=== PATIENT | female | born 1975 | race African-American/Black ===

== ENCOUNTER 2016-08-06 01:30 | Emergency (ER) | payer OTHER, MEDICAID ==
[~2016-08-06] VITALS: Ht 172.7 cm; Wt 96.0 kg
[2016-08-06] MEDS ORDERED: CYCLOBENZAPRINE 10MG TABLET PO ONE (02:15)
[2016-08-06] MEDS ORDERED: KETOROLAC 60MG/2ML VIAL IM ONE (02:15)
[2016-08-06 04:14] VITALS: BP 126/82
[2016-08-06] MEDS ORDERED: METF500T4 PO (22:49)
== END 2016-08-06 04:21 | disposition home or self-care (01) ==
LOC: ER 01:30
DX: M54.12 Radiculopathy, cervical region (principal); I10 Essential (primary) hypertension; E11.9 Type 2 diabetes mellitus without complications; H53.8 Other visual disturbances; Z88.0 Allergy status to penicillin
CPT/HCPCS: 73030; 82962; 96372; 99284; J1885

== ENCOUNTER 2016-08-06 16:03 | Observation (INO) | payer OTHER, MEDICAID ==
[~2016-08-06] VITALS: Ht 162.6 cm; Wt 89.8 kg
[2016-08-06] MEDS ORDERED: ONDANSETRON HCL 4MG/2ML VIAL IV STA (16:29)
[2016-08-06] MEDS ORDERED: MORPHINE SULFATE 4 MG/ML CPJ (NOT FOR IM USE) IV STA (16:29)
[2016-08-06] MEDS ORDERED: VANCOMYCIN 1 G PREMIX 200 ML IV ONE (16:30)
[2016-08-06] MEDS ORDERED: SODIUM CHLORIDE 0.9% 1000ML BAG (SEPSIS BOLUS) IV ONE (16:30)
[2016-08-06] MEDS ORDERED: LEVOFLOXACIN 750MG PREMIX 150 ML IV ONE (16:30)
[2016-08-06] MEDS ORDERED: ACETAMINOPHEN 325MG TABLET PO ONE (16:45)
[2016-08-06 16:54] LABS: BASOPHILS % 0.4 % (0.0-2.0); CHLORIDE 102 mEq/L (98-107); EOSINOPHILS % 0.1 % (0.0-5.0); HEMATOCRIT. 39.1 % (36.0-48.0); HEMOGLOBIN. 13.1 g/dL (12.0-16.0); LYMPHOCYTES % 10.4 % (20.0-50.0); MEAN CORPUSCULAR HEMOGLOBIN 29.8 pg (28.0-32.0); MEAN CORPUSCULAR VOLUME 88.8 fL (81.0-99.0); MEAN PLATELET VOLUME 8.8 fl (7.4-10.4); MONOCYTES % 4.9 % (2.0-8.0); NEUTROPHILS % 84.2 % (40.0-76.0); PLATELET 197 x1000/uL (130-400); RED CELL DISTRIBUTION WIDTH 13.4 % (11.6-14.6)
[2016-08-06 16:58] LABS: CARBON DIOXIDE 25 mEq/L (21-32); PROTHROMBIN TIME 10.1 sec
[2016-08-06 17:04] LABS: CLARITY URINE CLOUDY (CLEAR); COLOR URINE YELLOW (YELLOW); GLUCOSE URINE 3+ (NEGATIVE); KETONES URINE TRACE (NEGATIVE); LEUKOCYTE ESTERASE URINE TRACE (NEGATIVE); NITRITE URINE NEGATIVE (NEGATIVE); OCCULT BLOOD URINE 3+ (NEGATIVE); PROTEIN URINE NEGATIVE (NEGATIVE); SPECIFIC GRAVITY URINE 1.039 (1.005-1.030); UROBILINOGEN URINE 0.2 E.U./dL (0.2-1.0)
[2016-08-06 17:07] LABS: HCG SCREEN NEGATIVE
[2016-08-06] MEDS ORDERED: INSULIN LISPRO(HUMALOG)300 UNIT/3ML VIAL SUBCUT NR (20:30)
[2016-08-06 21:00] VITALS: BP 130/84
[2016-08-06 22:00] VITALS: BP 130/84
[2016-08-06] MEDS ORDERED: TEMAZEPAM 15MG CAPSULE PO PRN (22:45)
[2016-08-06] MEDS ORDERED: DEXTROSE 50% WATER 50ML SYRINGE IV PRN (22:45)
[2016-08-06] MEDS ORDERED: METF500T4 PO (22:49)
[2016-08-06] MEDS ORDERED: HYDROCODONE/ACETAMINOPHEN 5/325MG TABLET PO PRN (22:59)
[2016-08-07] VITALS: BP 118/66
[2016-08-07] MEDS ORDERED: ACETAMINOPHEN 325MG TABLET PO PRN (01:00)
[2016-08-07] MEDS ORDERED: VANCOMYCIN 1250MG in DEXTROSE 5% WATER 250ML IV NR (02:00)
[2016-08-07 04:00] VITALS: BP 108/58
[2016-08-07 06:23] LABS: BASOPHILS % 0.3 % (0.0-2.0); EOSINOPHILS % 0.4 % (0.0-5.0); HEMATOCRIT. 37.3 % (36.0-48.0); HEMOGLOBIN. 12.5 g/dL (12.0-16.0); MEAN CORPUSCULAR VOLUME 89.5 fL (81.0-99.0); MEAN PLATELET VOLUME 8.9 fl (7.4-10.4); MONOCYTES % 6.1 % (2.0-8.0); NEUTROPHILS % 67.2 % (40.0-76.0); PLATELET 175 x1000/uL (130-400); RED BLOOD CELL COUNT 4.17 mill/uL (4.2-5.4); RED CELL DISTRIBUTION WIDTH 13.6 % (11.6-14.6)
[2016-08-07 06:45] LABS: CHLORIDE 103 mEq/L (98-107)
[2016-08-07] MEDS: INSULIN LISPRO 100 UNITS/ML SUBCUT SCH ×3 (06:51→17:02)
[2016-08-07] MEDS: BLOOD SUGAR DIAGNOSTIC STRIP TEST SCH ×3 (06:52→17:02)
[2016-08-07 06:54] LABS: CARBON DIOXIDE 24 mEq/L (21-32)
[2016-08-07 08:00] VITALS: BP 119/68
[2016-08-07] MEDS ORDERED: LEVOFLOXACIN 500MG TABLET PO SCH (11:00)
[2016-08-07] MEDS ORDERED: MORPHINE SULFATE 2 MG/ML CPJ (NOT FOR IM USE) IV PRN (11:15)
[2016-08-07 12:00] VITALS: BP 107/72
[2016-08-07] MEDS ORDERED: VANCOMYCIN 1 G PREMIX 200 ML IV SCH (14:00)
[2016-08-07 16:00] VITALS: BP 145/76
[2016-08-07 17:49] VITALS: BP 133/99
[2016-08-07] MEDS ORDERED: ATORVASTATIN CALCIUM 20MG TABLET PO SCH (21:00)
== END 2016-08-07 18:40 | disposition home or self-care (01) ==
LOC: ER 16:32 → EDBEDREQ 18:25 → ENRESERV 19:27 → INTOOBSV 21:29 → 8WST 21:29
PROVIDERS: ADMIT Internal Medicine; ATTEND Internal Medicine
DX: L03.114 Cellulitis of left upper limb (principal); N39.0 Urinary tract infection, site not specified; E11.41 Type 2 diabetes mellitus with diabetic mononeuropathy; M79.89 Other specified soft tissue disorders; F17.210 Nicotine dependence, cigarettes, uncomplicated; I10 Essential (primary) hypertension; E78.5 Hyperlipidemia, unspecified; Z85.3 Personal history of malignant neoplasm of breast; Z88.0 Allergy status to penicillin; Z79.4 Long term (current) use of insulin; Z90.12 Acquired absence of left breast and nipple
CPT/HCPCS: 36415; 36569; 71010; 76937; 77001; 80048; 80053; 80061; 81001; 82962; 83036; 83605; 84703; 85025; 85610; 87040; 87086; 93005; 93971; 96365; 96366; 96368; 96372; 96375; 96376; 99285; C1725; G0378; J1815; J1956; J2270; J2405; J3370; J7030; J7050; J7060

== ENCOUNTER 2017-08-07 05:52 | Emergency (ER) | payer OTHER, MEDICAID ==
[~2017-08-07] VITALS: Ht 172.7 cm; Wt 98.0 kg
[2017-08-07 06:33] LABS: BASOPHILS % 1.7 % (0.0-2.0); EOSINOPHILS % 2.1 % (0.0-5.0); LYMPHOCYTES % 47.6 % (20.0-50.0); MEAN CORPUSCULAR HEMOGLOBIN 30.1 pg (28.0-32.0); MEAN CORPUSCULAR VOLUME 90.3 fL (81.0-99.0); MEAN PLATELET VOLUME 8.6 fl (7.4-10.4); MONOCYTES % 6.6 % (2.0-8.0); PLATELET 213 x1000/uL (130-400); RED BLOOD CELL COUNT 4.32 mill/uL (4.2-5.4); RED CELL DISTRIBUTION WIDTH 13.1 % (11.6-14.6)
[2017-08-07 06:38] LABS: CHLORIDE 99 mEq/L (98-107)
[2017-08-07 06:41] LABS: PARTIAL THROMBOPLASTIN TIME 24.7 sec (23.4-31.0)
[2017-08-07 06:47] LABS: CREATINE KINASE 52 IU/L (26-192)
[2017-08-07 06:48] LABS: HCG SCREEN NEGATIVE
[2017-08-07 06:49] LABS: CREATINE KINASE MB FRACTION < 0.5 ng/mL (0.5-3.6)
[2017-08-07] MEDS ORDERED: INSULIN REGULAR (HUMULIN R) 300UNITS/3ML IV ONE (07:45)
[2017-08-07 08:30] VITALS: BP 114/76
== END 2017-08-07 09:30 | disposition left against medical advice (07) ==
LOC: ER 06:12 → EDBEDREQ 07:41 → ENRESERV 07:43 → ER 09:30 → CANBEDREQ 13:03
DX: R07.9 Chest pain, unspecified (principal); E11.65 Type 2 diabetes mellitus with hyperglycemia; F17.200 Nicotine dependence, unspecified, uncomplicated; Z88.0 Allergy status to penicillin; Z90.12 Acquired absence of left breast and nipple; Z98.890 Other specified postprocedural states; Z79.4 Long term (current) use of insulin
CPT/HCPCS: 36415; 71045; 80053; 82550; 82553; 83690; 83880; 84443; 84484; 84703; 85025; 85610; 85730; 93005; 93970; 96374; 99285; J1815

== ENCOUNTER 2017-10-22 21:54 | Emergency (ER) | payer OTHER, MEDICAID ==
[~2017-10-22] VITALS: Ht 172.7 cm; Wt 94.0 kg
[2017-10-22] MEDS ORDERED: SODIUM CHLORIDE 0.9% 1,000 ML IV ONE (23:22)
[2017-10-22] MEDS ORDERED: ACETAMINOPHEN 325MG TABLET PO STA (23:22)
[2017-10-22] MEDS ORDERED: VANCOMYCIN 1 G PREMIX 200 ML IV ONE (23:30)
[2017-10-22] MEDS ORDERED: LEVOFLOXACIN 750MG PREMIX 150 ML IV ONE (23:30)
[2017-10-23 00:04] LABS: BASOPHILS % 0.9 % (0.0-2.0); EOSINOPHILS % 0.7 % (0.0-5.0); HEMOGLOBIN. 15.5 g/dL (12.0-16.0); MEAN CORPUSCULAR HEMOGLOBIN 30.7 pg (28.0-32.0); MEAN CORPUSCULAR VOLUME 91.1 fL (81.0-99.0); MEAN PLATELET VOLUME 8.7 fl (7.4-10.4); MONOCYTES % 4.6 % (2.0-8.0); NEUTROPHILS % 80.8 % (40.0-76.0); PLATELET 241 x1000/uL (130-400); RED BLOOD CELL COUNT 5.05 mill/uL (4.2-5.4); RED CELL DISTRIBUTION WIDTH 13.1 % (11.6-14.6)
[2017-10-23 00:05] LABS: INR 0.9; PROTHROMBIN TIME 9.4 sec (9.1-11.1)
[2017-10-23 00:07] LABS: CHLORIDE 94 mEq/L (98-107)
[2017-10-23 02:05] VITALS: BP 157/89
== END 2017-10-23 04:35 | disposition home or self-care (01) ==
LOC: ER 21:54
DX: L03.114 Cellulitis of left upper limb (principal); E11.65 Type 2 diabetes mellitus with hyperglycemia; F17.200 Nicotine dependence, unspecified, uncomplicated; Z88.0 Allergy status to penicillin
CPT/HCPCS: 36415; 71045; 80053; 81025; 85025; 85610; 87040; 87077; 87186; 96365; 96367; 99285; J1956; J3370; J7030

== ENCOUNTER 2017-11-13 22:53 | Emergency (ER) | payer OTHER, MEDICAID ==
[~2017-11-13] VITALS: Ht 172.7 cm; Wt 94.0 kg
[2017-11-14] MEDS ORDERED: SODIUM CHLORIDE 0.9% 1,000 ML IV ONE (00:51)
[2017-11-14 01:27] LABS: BASOPHILS % 0.3 % (0.0-2.0); EOSINOPHILS % 0.8 % (0.0-5.0); HEMATOCRIT. 41.2 % (36.0-48.0); HEMOGLOBIN. 14.2 g/dL (12.0-16.0); LYMPHOCYTES % 18.5 % (20.0-50.0); MEAN CORPUSCULAR HEMOGLOBIN 30.9 pg (28.0-32.0); MEAN CORPUSCULAR VOLUME 89.7 fL (81.0-99.0); MEAN PLATELET VOLUME 10.2 fl (7.4-10.4); MONOCYTES % 5.3 % (2.0-8.0); NEUTROPHILS % 75.1 % (40.0-76.0); PLATELET 263 x1000/uL (130-400); RED BLOOD CELL COUNT 4.59 mill/uL (4.2-5.4); RED CELL DISTRIBUTION WIDTH 13.3 % (11.6-14.6)
[2017-11-14 02:15] LABS: CHLORIDE 102 mEq/L (98-107)
[2017-11-14 02:49] LABS: CLARITY URINE CLEAR (CLEAR); COLOR URINE YELLOW (YELLOW); KETONES URINE 1+ (NEGATIVE); LEUKOCYTE ESTERASE URINE NEGATIVE (NEGATIVE); NITRITE URINE NEGATIVE (NEGATIVE); OCCULT BLOOD URINE NEGATIVE (NEGATIVE); PH URINE 5.5 (4.5-8.0); PROTEIN URINE NEGATIVE (NEGATIVE); SPECIFIC GRAVITY URINE 1.043 (1.005-1.030); UROBILINOGEN URINE 0.2 E.U./dL (0.2-1.0)
[2017-11-14 03:15] VITALS: BP 132/72
== END 2017-11-14 03:50 | disposition home or self-care (01) ==
LOC: ER 22:53
DX: E11.65 Type 2 diabetes mellitus with hyperglycemia (principal); L03.314 Cellulitis of groin; Z88.0 Allergy status to penicillin; Z85.3 Personal history of malignant neoplasm of breast; Z90.12 Acquired absence of left breast and nipple; Z79.84 Long term (current) use of oral hypoglycemic drugs
CPT/HCPCS: 36415; 80053; 81003; 82962; 85025; 96360; 99284; J7030

== ENCOUNTER 2018-02-20 04:10 | Emergency (ER) | payer BC, MEDICAID ==
[~2018-02-20] VITALS: Ht 172.7 cm; Wt 87.0 kg
[2018-02-20] MEDS ORDERED: SODIUM CHLORIDE 0.9% 1,000 ML IV ONE (07:36)
[2018-02-20] MEDS ORDERED: DIPHENHYDRAMINE 50MG/ML VIAL IV ONE (07:45)
[2018-02-20] MEDS ORDERED: METHYLPREDNISOLONE SOD SUCC 40 MG/ML VIAL IV ONE (07:45)
[2018-02-20 09:07] LABS: CHLORIDE 100 mEq/L (98-107)
[2018-02-20 09:08] LABS: PROTHROMBIN TIME 10.2 sec (9.1-11.1)
[2018-02-20 09:29] LABS: CLARITY URINE CLEAR (CLEAR); COLOR URINE YELLOW (YELLOW); KETONES URINE 3+ (NEGATIVE); LEUKOCYTE ESTERASE URINE NEGATIVE (NEGATIVE); NITRITE URINE NEGATIVE (NEGATIVE); OCCULT BLOOD URINE NEGATIVE (NEGATIVE); PH URINE 5.5 (4.5-8.0); PROTEIN URINE NEGATIVE (NEGATIVE); SPECIFIC GRAVITY URINE 1.044 (1.005-1.030); UROBILINOGEN URINE 0.2 E.U./dL (0.2-1.0)
[2018-02-20 09:32] LABS: BASOPHILS % 0.6 % (0.0-2.0); EOSINOPHILS % 0.6 % (0.0-5.0); HEMATOCRIT. 42.7 % (36.0-48.0); HEMOGLOBIN. 14.4 g/dL (12.0-16.0); LYMPHOCYTES % 31.7 % (20.0-50.0); MEAN CORPUSCULAR HEMOGLOBIN 30.5 pg (28.0-32.0); MEAN CORPUSCULAR VOLUME 90.2 fL (81.0-99.0); MEAN PLATELET VOLUME 9.7 fl (7.4-10.4); NEUTROPHILS % 60.1 % (40.0-76.0); PLATELET 232 x1000/uL (130-400); RED BLOOD CELL COUNT 4.74 mill/uL (4.2-5.4); RED CELL DISTRIBUTION WIDTH 12.9 % (11.6-14.6)
[2018-02-20 09:48] LABS: *AMPHETAMINES SCREEN URINE NEGATIVE (NEGATIVE); *BARBITURATES SCREEN URINE NEGATIVE (NEGATIVE); *BENZODIAZEPINES SCREEN URINE NEGATIVE (NEGATIVE); *COCAINE SCREEN URINE NEGATIVE (NEGATIVE)
[2018-02-20 09:49] LABS: CANNABINOID URINE SCREEN NEGATIVE (NEGATIVE); METHADONE URINE SCREEN NEGATIVE (NEGATIVE); OPIATES URINE SCREEN NEGATIVE (NEGATIVE); PHENCYCLIDINE URINE SCREEN NEGATIVE (NEGATIVE)
[2018-02-20 10:34] VITALS: BP 124/73
== END 2018-02-20 10:46 | disposition home or self-care (01) ==
LOC: ER 04:10
DX: L50.9 Urticaria, unspecified (principal); E11.65 Type 2 diabetes mellitus with hyperglycemia; R00.0 Tachycardia, unspecified; F17.200 Nicotine dependence, unspecified, uncomplicated; Z88.0 Allergy status to penicillin; Z85.3 Personal history of malignant neoplasm of breast; Z90.12 Acquired absence of left breast and nipple
CPT/HCPCS: 36415; 71045; 80053; 80305; 81003; 81025; 83880; 84484; 85025; 85610; 93005; 96374; 96375; 99284; J1200; J2920; J7030